=== PATIENT | female | born 1975 | race American Indian/Alaskan Native ===

== ENCOUNTER 2016-07-11 17:20 | Emergency (ER) | payer MEDICARE ==
[2016-07-11 17:59] VITALS: BP 201/117
== END 2016-07-11 17:30 | disposition left against medical advice (07) ==
LOC: ED 17:20
DX: J45.909 Unspecified asthma, uncomplicated (principal); Z53.21 Procedure and treatment not carried out due to patient leaving prior to being seen by health care provider

== ENCOUNTER 2018-04-10 11:13 | Emergency (ER) | payer MEDICARE ==
[2018-04-10] MEDS ORDERED: DUONEB *Not for PRN Use IH ONE ×2 (11:18)
[2018-04-10] MEDS ORDERED: DELTASONE PO STA (12:24)
--- NOTE | 2018-04-10 12:32 | Emergency Department Report ---
ED Asthma HPI - General Chief Complaint: Adult Asthma Stated Complaint: SOB Time Seen by Provider: 04/10/18 12:23 Source: patient Mode of arrival: Ambulatory Limitations: No Limitations - History of Present Illness MD Complaint: "asthma attack", wheezing -: Gradual Asthma History: other (no history of asthma, which she utilizes nebulizers) - Related Data Home Medications Medication Instructions Recorded Confirmed Last Taken Enoxaparin Sodium [Lovenox] 40 mg SUB-Q QHS 02/04/16 02/21/16 02/15/16 Methimazole [Tapazole] 10 mg PO BID 02/21/16 02/21/16 02/21/16 02:00 10 mg Previous Rx's Medication Instructions Recorded Last Taken Type oxyCODONE /ACETAMINOPHEN [Percocet 1 tab PO Q6HR PRN #40 tablet 02/19/16 Unknown Rx 5/325] Docusate Sodium [Colace] 100 mg PO BID PRN #60 capsule 02/21/16 Unknown Rx Ibuprofen [Motrin] 800 mg PO Q8HR PRN #60 tablet 02/21/16 Unknown Rx Enoxaparin [Lovenox] 40 mg SUB-Q QDAY@2200 #30 syringe 02/22/16 Unknown Rx Methimazole [Tapazole] 10 mg PO BID #60 tablet 02/22/16 Unknown Rx ALBUTEROL NEB's [Proventil 0.083% 2.5 mg IH TID PRN #30 neb 04/10/18 Unknown Rx NEBS] Benzonatate [Tessalon Perles] 100 mg PO Q8HR #20 capsule 04/10/18 Unknown Rx Ipratropium/Albuter (Nf) 2 puff IH QID #1 inha 04/10/18 Unknown Rx [Combivent (Nf)] Labetalol [Normodyne TAB] 200 mg PO TID #42 tablet 04/10/18 Unknown Rx predniSONE [Deltasone] 50 mg PO QDAY #5 tab 04/10/18 Unknown Rx Allergies Allergy/AdvReac Type Severity Reaction Status Date / Time aspirin Allergy Swelling Verified 09/08/13 12:43 shellfish derived Allergy Anaphylaxis Verified 09/08/13 12:43 ED Review of Systems ROS: Stated complaint: SOB Other details as noted in HPI Constitutional: denies: chills, fever Eyes: denies: eye pain, eye discharge, vision change ENT: denies: ear pain, throat pain Respiratory: wheezing. denies: cough, shortness of breath Cardiovascular: denies: chest pain, palpitations Endocrine: no symptoms reported Gastrointestinal: denies: abdominal pain, nausea, diarrhea Genitourinary: denies: urgency, dysuria, discharge Musculoskeletal: denies: back pain, joint swelling, arthralgia Skin: denies: rash, lesions Neurological: denies: headache, weakness, paresthesias Psychiatric: denies: anxiety, depression Hematological/Lymphatic: denies: easy bleeding, easy bruising ED Past Medical Hx - Past Medical History Hx Hypertension: Yes (complicating (PIH)) Hx Congestive Heart Failure: No Hx Diabetes: No Hx Deep Vein Thrombosis: No Hx Renal Disease: No Hx Sickle Cell Disease: No Hx Seizures: No Hx Asthma: Yes Hx COPD: No Hx HIV: No Additional medical history: hyperthyroidism. "blood clot on heart" - Surgical History Past Surgical History?: Yes Additional Surgical History: x 2 - Social History Smoking Status: Never Smoker Substance Use Type: None - Medications Home Medications: Home Medications Medication Instructions Recorded Confirmed Last Taken Type Enoxaparin Sodium [Lovenox] 40 mg SUB-Q QHS 02/04/16 02/21/16 02/15/16 History oxyCODONE /ACETAMINOPHEN [Percocet 1 tab PO Q6HR PRN #40 tablet 02/19/16 Unknown Rx 5/325] Docusate Sodium [Colace] 100 mg PO BID PRN #60 capsule 02/21/16 Unknown Rx Ibuprofen [Motrin] 800 mg PO Q8HR PRN #60 tablet 02/21/16 Unknown Rx Methimazole [Tapazole] 10 mg PO BID 02/21/16 02/21/16 02/21/16 02:00 History 10 mg Enoxaparin [Lovenox] 40 mg SUB-Q QDAY@2200 #30 syringe 02/22/16 Unknown Rx Methimazole [Tapazole] 10 mg PO BID #60 tablet 02/22/16 Unknown Rx ALBUTEROL NEB's [Proventil 0.083% 2.5 mg IH TID PRN #30 neb 04/10/18 Unknown Rx NEBS] Benzonatate [Tessalon Perles] 100 mg PO Q8HR #20 capsule 04/10/18 Unknown Rx Ipratropium/Albuter (Nf) 2 puff IH QID #1 inha 04/10/18 Unknown Rx [Combivent (Nf)] Labetalol [Normodyne TAB] 200 mg PO TID #42 tablet 04/10/18 Unknown Rx predniSONE [Deltasone] 50 mg PO QDAY #5 tab 04/10/18 Unknown Rx ED Physical Exam - General Limitations: No Limitations General appearance: alert, in no apparent distress - Head Head exam: Present: atraumatic, normocephalic - Eye Eye exam: Present: normal appearance, PERRL, EOMI Pupils: Present: normal accommodation - ENT ENT exam: Present: normal exam, normal orophraynx, mucous membranes moist - Neck Neck exam: Present: normal inspection, full ROM. Absent: tenderness - Respiratory Respiratory exam: Present: normal lung sounds bilaterally, wheezes, decreased breath sounds. Absent: respiratory distress - Cardiovascular Cardiovascular Exam: Present: regular rate, normal rhythm, bradycardia. Absent : systolic murmur, diastolic murmur, rubs, gallop - GI/Abdominal GI/Abdominal exam: Present: soft, normal bowel sounds - Extremities Exam Extremities exam: Present: normal inspection - Back Exam Back exam: Present: normal inspection - Neurological Exam Neurological exam: Present: alert, oriented X3 - Psychiatric Psychiatric exam: Present: normal affect, normal mood - Skin Skin exam: Present: warm, dry, intact, normal color. Absent: rash ED Course Vital Signs 04/10/18 04/10/18 04/10/18 11:14 11:21 11:47 Temperature 97.9 F Pulse Rate 117 H Pulse Rate [ 112 H 119 H Posterior Bilateral Throughout] Respiratory 24 Rate Respiratory 20 18 Rate [Posterior Bilateral Throughout] Blood Pressure 216/121 O2 Sat by Pulse 97 Oximetry - Reevaluation(s) Reevaluation #2: 04/10/18 14:24 Blood pressure improved to 171/81, heart rate 98. There is no respiratory distress. Mild rhonchi, no wheezing breathing. Patient is ambulatory with no shortness of breath and able to speak in full sentences without complications ED Medical Decision Making - Radiology Data Radiology results: report reviewed (no acute process. No infiltrate, no effusion) - Medical Decision Making 12:17 PM missed nurses reevaluated following the albuterol nebulizer. Wheezing significant doses significant decrease in work of breathing. No rushes to distress her current heart rate 112 Critical care attestation.: If time is entered above; I have spent that time in minutes in the direct care of this critically ill patient, excluding procedure time. ED Disposition Clinical Impression: Asthma, Medication refill, HTN (hypertension) Disposition: TO HOME OR SELFCARE Is pt being admited?: No Does the pt Need Aspirin: No Condition: Stable Instructions: Asthma (ED), Reactive Airways Disease (ED), Hypertension (ED) Prescriptions: ALBUTEROL NEB's [Proventil 0.083% NEBS] 2.5 mg IH TID PRN #30 neb PRN Reason: Wheezing Benzonatate [Tessalon Perles] 100 mg PO Q8HR #20 capsule Ipratropium/Albuter (Nf) [Combivent (Nf)] 2 puff IH QID #1 inha Labetalol [Normodyne TAB] 200 mg PO TID #42 tablet predniSONE [Deltasone] 50 mg PO QDAY #5 tab Referrals: PRIMARY CARE, [Primary Care Provider] - 3-5 Days [facility] [Provider Group] - 3-5 Days ED Recheck MDM - Differential Diagnosis Prescription Refill(s)
--- NOTE | 2018-04-10 13:08 | XRay Report ---
FINAL REPORT EXAM: XR CHEST ROUTINE 2V HISTORY: cough and wheeze TECHNIQUE: Frontal and lateral chest radiographs. PRIORS: None. FINDINGS: The cardiomediastinal silhouette is normal. No focal consolidation. No pleural effusion. No pneumothorax. No acute osseous abnormality. IMPRESSION: No acute cardiopulmonary process.
[2018-04-10] MEDS ORDERED: CATAPRES ONE (13:51)
[2018-04-10] MEDS ORDERED: CATAPRES PO STA (13:53)
[2018-04-10 14:25] VITALS: BP 178/101
== END 2018-04-10 14:29 | disposition home or self-care (01) ==
LOC: ED 11:13
DX: J45.909 Unspecified asthma, uncomplicated (principal); I10 Essential (primary) hypertension; E05.90 Thyrotoxicosis, unspecified without thyrotoxic crisis or storm; Z88.6 Allergy status to analgesic agent; Z91.013 Allergy to seafood
CPT/HCPCS: 71046; 94640; 99284; J7512